=== PATIENT | female | born 1975 | race Caucasian/White ===

== ENCOUNTER 2025-03-08 10:37 | Emergency (ER) | payer SELFPAY ==
[~2025-03-08] VITALS: Ht 162.6 cm; Wt 94.9 kg
[2025-03-08 10:40] VITALS: PULSE 97; RESP 20; TEMP 98
[2025-03-08] MEDS: IBUPROFEN 600 MG TAB PO STA (11:32)
[2025-03-08 12:32] VITALS: BP 144/87; PULSE 83; RESP 18; TEMP 97.9; O2SAT 97
== END 2025-03-08 12:30 | disposition home or self-care (01) ==
LOC: FSED 11:00
DX: S63.591A Other specified sprain of right wrist, initial encounter (principal); W01.0XXA Fall on same level from slipping, tripping and stumbling without subsequent striking against object, initial encounter; Y92.89 Other specified places as the place of occurrence of the external cause; R03.0 Elevated blood-pressure reading, without diagnosis of hypertension; F17.210 Nicotine dependence, cigarettes, uncomplicated
CPT/HCPCS: 99284